=== PATIENT | male | born 1985 | race Caucasian/White ===

== ENCOUNTER → 2017-11-24 | Outpatient (CLI) | payer OTHER ==
--- NOTE | 2017-11-24 08:22 | CT ---
EXAMINATION TYPE: CT brain wo con DATE OF EXAM: 11/24/2017 COMPARISON: NONE INDICATION: Peripheral vertigo and migraine DLP: 1036 mGycm, Automated exposure control for dose reduction was used. CONTRAST: None CT of the brain is performed utilizing 3 mm thick sections through the posterior fossa and 3 mm thick sections through the remaining calvarium. Study is performed within 24 hours of [facility] the [facility]. No abnormal hyperdensity is present to suggest an acute intracranial hemorrhage. No mass lesion is evident. No acute infarcts are evident. Cerebellar tonsils are low-lying, Arnold-Chiari malformation cannot be excluded. This could be evaluated with MRI. Ventricles and sulci are appropriate for the patient age. Paranasal sinuses and mastoid air cells within the [id number] are clear. IMPRESSIONS: 1. No acute intracranial process. 2. Cerebellar tonsils within the foramen magnum partially visualized. Arnold-Chiari malformation [place] ot be excluded. This could be evaluated with MRI.
== END | disposition home or self-care (01) ==
LOC: RADCTMAIN 07:17
PROVIDERS: ATTEND Physician Assistant Medical
DX: G43.009 Migraine without aura, not intractable, without status migrainosus (principal); H81.393 Other peripheral vertigo, bilateral
CPT/HCPCS: 70450

== ENCOUNTER → 2017-12-15 | Outpatient (CLI) | payer OTHER ==
--- NOTE | 2017-12-16 10:23 | MR ---
EXAMINATION TYPE: MR brain/cspine wok DATE OF EXAM: 12/15/2017 COMPARISON: CT brain 11/24/2017 HISTORY: Vertigo T1-weighted sagittal, T2, FLAIR, and diffusion axial, and T2 coronal coronal views of the brain are s ubmitted. There is no evidence of acute ischemia. The ventricles, basal cisterns, and sulci overlying the conv exities are consistent with the patient's age. There is no mass effect. No cerebellopontine angle mass. Sella turcica has a normal appearance. No cerebellopontine angle mass. There are areas of abnormal signal involving the parietal calvarium b ilaterally which corresponds lucent lesion seen by CT scan. These are nonspecific. Cerebellar tonsils are low-lying in position measuring approximately 3-4 mm below the foramen magnum. Changes of chronic sinusitis are noted. White matter: No areas of abnormal signal are seen within the visualized white matter IMPRESSION: 1. No acute intracranial process. Cerebellar tonsils are low-lying in position measuring 3-4 mm below the level of the foramen magnum. 2. Nonspecific abnormal signal involving the parietal calvarium bilaterally greater on the left. This does correspond to lucent lesions within the bone seen by recent CT of the brain. Findings are likel y benign, however, Recommend correlation with bone scan. EXAMINATION TYPE: MR brain/cspine wo DATE OF EXAM: 12/15/2017 COMPARISON: NONE HISTORY: Vertigo TECHNIQUE: T1 sagittal and coronal, T2 sagittal, and gradient echo axial views of the cervical spine are submitted. FINDINGS: The cerebellar tonsils low-lying in position.. There is no abnormal signal seen within the spinal cord or paraspinal soft tissues. Shotty adenopathy seen within the left carotid space. At C2-3 there is no degenerative disc disease, disc herniation, canal stenosis, or foraminal encroach ment. At C3-4 there is no degenerative disc disease, disc herniation, canal stenosis, or foraminal encroach ment At C4-5 there is no degenerative disc disease, disc herniation, canal stenosis, or foraminal encroach ment At C5-6 there is mild disc desiccation. There is central disc bulging with very mild effacement of th ecal sac but no canal stenosis or foraminal encroachment. At C6-7 there is no degenerative disc disease, disc herniation, canal stenosis, or foraminal encroach ment At C7-T1 there is no degenerative disc disease, disc herniation, canal stenosis, or foraminal encroac hment IMPRESSION: 1. At C5-6 there is central disc bulging with very mild effacement of thecal sac but no canal steno sis or foraminal encroachment.
== END | disposition home or self-care (01) ==
LOC: RADMRIMAIN 20:03
PROVIDERS: ATTEND Physician Assistant Medical
DX: M50.222 Other cervical disc displacement at C5-C6 level (principal); R93.0 Abnormal findings on diagnostic imaging of skull and head, not elsewhere classified
CPT/HCPCS: 70551; 72141

== ENCOUNTER → 2017-12-24 | Outpatient (CLI) | payer OTHER ==
--- NOTE | 2017-12-24 15:18 | NM ---
EXAMINATION TYPE: NM bone scan whole body DATE OF EXAM: 12/24/2017 COMPARISON: MR brain 12/15/2017, CT brain 11/24/2017 HISTORY: Abnormality on prior brain MRI, R 93.7 Delayed whole-body scanning was performed following the injection of 25.1 mCi Tc 99m MDP. Images acq uired 3 hours post injection. FINDINGS: No abnormal increased radiopharmaceutical uptake site of patient's described lesion in the left great er than right parietal calvarium. Soft tissue uptake is normal. IMPRESSION: Benign findings
== END | disposition home or self-care (01) ==
LOC: RADNMMAIN 10:26
PROVIDERS: ATTEND Family Medicine
DX: R93.7 Abnormal findings on diagnostic imaging of other parts of musculoskeletal system (principal); G43.009 Migraine without aura, not intractable, without status migrainosus
CPT/HCPCS: 78306; A9503